=== PATIENT | male | born 2000 | race Caucasian/White ===

== ENCOUNTER 2018-09-20 08:57 | Emergency (ER) | payer MEDICAID, SELFPAY ==
[2018-09-20 08:58] VITALS: BP 142/82; PULSE 93; RESP 16; TEMP 36.3; O2SAT 98; BMI 26.1
[2018-09-20 09:00] VITALS: BP 142/82; PULSE 93; RESP 16; TEMP 36.3; O2SAT 98
--- NOTE | 2018-09-20 09:51 | ED.VISSUMM ---
- ER Visit Summary Date of Service: 09/20/18 Chief Complaint: Diarrhea History of Present Illness: The patient is a 17 M who presents with diarrhea that has been getting worse over the past 3 days. Patient states his stools are watery. Patient denies any melena or hematochezia. Patient states he has multiple episodes per day. Patient denies any nausea or vomiting. Patient denies abdominal pain. Patient denies any urinary complaints. Patient denies any recent travel. Patient states he has been taking Pepto-Bismol at home with no relief. Physical Examination: Vital signs are stable. Patient is afebrile. Patient is in no acute distress. Oral mucosa is pink and moist. Neck is supple. Trachea is midline. There is no JVD noted. Heart was regular rate and rhythm. Lungs are clear and equal bilateral. Abdomen is soft. Bowel sounds are normal. There is no tenderness. There is no guarding noted. Skin is warm dry. Cranial nerves II through XII are intact. There are no focal motor or sensory deficits noted. The remaining physical exam is within normal limits. Test Results: CBC and comprehensive metabolic profile were obtained and were essentially within normal limits. BUN was slightly elevated at 24. Stool specimen was obtained for enteric pathogens, ova, and parasites. This is pending. Emergency Department Course and Treatment: Patient was given IV fluids here. Patient was feeling better on reevaluation. Patient was instructed to follow-up with his primary care physician as scheduled. Patient understood and was agreeable with the plan. All questions were answered. Disposition: Discharge home Impression: Diarrhea This note was generated with [employer] dictation software. It may contain incorrect words, spelling, and punctuation that were not noted in review of the chart prior to signing ED Disposition - Plan for ED Patient: Disposition: Home or Assisted Living Diagnosis: Diarrhea Instructions: ED Diarrhea Viral Referrals: Mauricio Gonzalez MD [STAFF PHYSICIAN] - Keep Krystin appointment
--- NOTE | 2018-09-20 09:56 | ED.DCSUM_ITS ---
- ER Visit Summary Date of Service: 09/20/18 Chief Complaint: Diarrhea History of Present Illness: The patient is a 17 M who presents with diarrhea that has been getting worse over the past 3 days. Patient states his stools are watery. Patient denies any melena or hematochezia. Patient states he has mult iple episodes per day. Patient denies any nausea or vomiting. Patient denies abdominal pain. Patient denies any urinary complaints. Patient denies any recent travel. Patient states he has been taking Pepto-Bismol at home with no relief. Physical Examination: Vital signs are stable. Patient is afebrile. Patient is in no acute distress. Oral mucosa is pink and moist. Neck is supple. Trachea is midline. There is no JVD noted. Heart was regular rate and rhythm. Lungs are clear and equal bilateral. Abdomen is soft. Bowel sounds are normal. There is no tenderness. There is no guarding noted. Skin is warm dry. Cranial nerves II through XII are intact. There are no focal motor or sensory deficits noted. The remaining physical exam is within normal limits. Test Results: CBC and comprehensive metabolic profile were obtained and were essentially within normal limits. BUN was slightly elevated at 24. Stool specimen was obtained for enteric pathogens, ova, and parasites. This is pending. Emergency Department Course and Treatment: Patient was given IV fluids here. Patient was feeling better on reevaluation. Patient was instructed to follow-up with his primary care physician as scheduled. Patient understood and was agreeable with the plan. All questions were answered. Disposition: Discharge home Impression: Diarrhea This note was generated with [employer] dictation software. It may contain incorrect words, spelling, and punctuation that were not noted in review of the chart prior to signing ED Disposition - Plan for ED Patient: Disposition: Home or Assisted Living Diagnosis: Diarrhea Instructions: ED Diarrhea Viral Referrals: Mauricio Gonzalez MD [STAFF PHYSICIAN] - Keep Krystin appointment
[2018-09-20] MEDS: 0.9% Normal Saline 1,000 ML 1000 ML IV (10:50)
[2018-09-20 10:58] VITALS: BP 137/89; PULSE 70; RESP 14; O2SAT 99
[2018-09-20 11:02] LABS: Absolute Lymphocyte Count 2.08 X10^3/ul (0.83-4.51); Basophil# 0.03 X10^3/uL; Basophil% 0.4 % (0-1); Eosinophil# 0.19 X10^3/uL; Eosinophils% 2.7 % (0-5); Hematocrit 48.8 % (40-54); Hemoglobin 16.1 g/dl (13.0-16.5); Lymphocyte # 2.08 X10^3/ul (4.0); Lymphocyte % 29.3 % (19-41); Mean Corpuscular Hgb 27.9 pg (27.0-32.0); Mean Corpuscular Volume 84.4 fL (80-94); Mean Platelet Vol. 9.8 fl (6.2-12.0); Monocyte# 0.75 X10^3/uL; Monocyte% 10.5 % (0-10); Neutrophil # 4.03 X10^3/uL (2.7-7.7); Neutrophil % 56.7 % (47-70); Platelet Count 133 K/mm3 (150-450); RBC Distribution Width CV 14.2 % (11.6-14.6); RBC Distribution Width SD 43.6 fl (35.1-43.9); Red Blood Count 5.78 M/mm3 (4.6-6.2); White Blood Count 7.1 K/mm3 (4.4-11.0)
[2018-09-20 11:07] LABS: POSITIVE COUNT NO; POSITIVE DIFFERENTIAL NO; POSITIVE MORPHOLOGY NO
[2018-09-20 11:31] LABS: ALB/GLOB Ratio 0.9 RATIO (0.9-2.4); AST(SGOT) 53 U/L (15-37); Alanine Aminotransfer ALT/SGPT 72 U/L (16-61); Albumin, Serum 4.6 g/dL (3.2-5.0); Alkaline Phosphatase 112 U/L (45-117); Anion Gap 10 (5-15); BUN 24 mg/dL (7-18); BUN/Creat Ratio 28.6 RATIO (10-20); Calcium,Total 9.4 mg/dL (8.5-10.1); Chloride 110 mmol/L (98-107); Creatinine, Serum 0.84 mg/dL (0.70-1.30); EST Glomerular Filtration Rate 124 mL/min (>60); Est Glom Filt Rate - Afr Amer 150 mL/min (>60); Estimated Creatinine Clearance 136.85 ml/min; Globulin 4.9 g/dL (2.2-4.2); Glucose 88 mg/dL (74-106); Lipase 94 U/L (73-393); Potassium 4.2 mmol/L (3.5-5.1); Protein, Total 9.5 g/dL (6.4-8.2); Sodium Level 141 mmol/L (136-145)
== END 2018-09-20 12:51 | disposition home or self-care (01) ==
PROVIDERS: Emergency Provider Emergency Medicine; Family Provider Family Medicine; PCP Family Medicine
DX: R19.7 Diarrhea, unspecified (principal); Z72.0 Tobacco use
CPT/HCPCS: 80053; 83690; 85025; 87177; 87209; 87506; 96360; 99283; J7030

== ENCOUNTER → 2020-01-05 10:27 | Outpatient (CLI) | payer SELFPAY ==
[2020-01-04 17:45] VITALS: BMI 26.7
[2020-01-05 13:58] LABS: Chlamydia Trachomatis by PCR POSITIVE (Negative); Neisserai gonorrhoeae by PCR Negative (Negative); Probe Check PASS; Sample Adequacy Control PASS; Specimen Processing Control PASS
== END ==
PROVIDERS: PCP Family Medicine; Referring Provider Physician Assistant Surgical; Visit Provider Physician Assistant Surgical
DX: Z20.2 Contact with and (suspected) exposure to infections with a predominantly sexual mode of transmission (principal)
CPT/HCPCS: 87491; 87591